=== PATIENT | female | born 1990 | race Two or more races ===

== ENCOUNTER 2019-08-13 12:55 | Emergency (ER) | payer MEDICAID ==
[~2019-08-13] VITALS: Ht 160 cm; Wt 46.3 kg
--- NOTE | 2019-08-13 13:30 | NUR ---
patient caem in via ambulatory c/o r breast pain, in room air, breathing evenly and unlabroed. Kept comfortable, will continue to monitor accordingly.
[2019-08-13 15:29] VITALS: BP 135/81
--- NOTE | 2019-08-13 15:29 | NUR ---
Patient discharged to home in stable condition. Written and verbal after care instructions given. Patient verbalizes understanding of instruction.
== END 2019-08-13 15:29 | disposition home or self-care (01) ==
LOC: ER 12:59
DX: S16.1XXA Strain of muscle, fascia and tendon at neck level, initial encounter (principal); N64.4 Mastodynia; X58.XXXA Exposure to other specified factors, initial encounter; Y93.89 Activity, other specified; Y92.89 Other specified places as the place of occurrence of the external cause; Y99.8 Other external cause status
CPT/HCPCS: 76642-TC

== ENCOUNTER 2019-12-11 21:15 | Emergency (ER) | payer MEDICAID ==
[~2019-12-11] VITALS: Ht 162.6 cm; Wt 44.5 kg
[2019-12-11 21:45] VITALS: BP 101/68
--- NOTE | 2019-12-11 21:50 | NUR ---
PT C/C R SIDED BREAST PAIN RADIATING DOWN TO R HAND SINCE THIS AM. PT AAOX4, VSS, NO ACUTE DISTRESS NOTED. PT CONNECTED TO THE MONITOR AND POX
--- NOTE | 2019-12-11 22:50 | NUR ---
PT TAKEN TO XRAY
[2019-12-11] MEDS ORDERED: IBUPROFEN 400 MG TABLET ONE (22:57)
[2019-12-11] MEDS ORDERED: IBUPROFEN 400 MG TABLET PO ONE (23:00)
--- NOTE | 2019-12-11 23:01 | NUR ---
PT BACK FROM XRAY
--- NOTE | 2019-12-11 23:23 | NUR ---
Patient discharged to home in stable condition. Written and verbal after care instructions given. Patient verbalizes understanding of instruction.
== END 2019-12-11 23:23 | disposition home or self-care (01) ==
LOC: ER 21:18
DX: M79.18 Myalgia, other site (principal); R07.81 Pleurodynia
CPT/HCPCS: 71100-TC

== ENCOUNTER 2021-05-18 00:49 | Emergency (ER) | payer BC, MEDICAID ==
[~2021-05-18] VITALS: Ht 160 cm; Wt 49.0 kg
[2021-05-18 00:53] VITALS: BP 116/74
[2021-05-18] MEDS ORDERED: IBUP-1957 PO (03:07)
== END 2021-05-18 03:15 | disposition home or self-care (01) ==
LOC: ER 00:51
DX: N64.4 Mastodynia (principal)
CPT/HCPCS: 76642-RT-TC

== ENCOUNTER 2021-11-29 15:50 | Emergency (ER) | payer BC, OTHER ==
[~2021-11-29] VITALS: Ht 160 cm; Wt 49.0 kg
[~2021-11-29 15:50] MED LIST: IBUP-1957 PO
--- NOTE | 2021-11-29 16:30 | NUR ---
SENT BY PCV FOR CHEST X RAY; + COVID - SHE BOUGHT COVID TEST KIT LAST NIGHT + COUGH AND CONGESTION
[2021-11-29 19:08] VITALS: BP 116/78
--- NOTE | 2021-11-29 19:08 | NUR ---
Patient discharged to home in stable condition. Written and verbal after care instructions given. Patient verbalizes understanding of instruction.
== END 2021-11-29 19:09 | disposition home or self-care (01) ==
LOC: ER 16:21
DX: U07.1 COVID-19 (principal); M54.6 Pain in thoracic spine
CPT/HCPCS: 71045-TC